=== PATIENT | male | born 1970 | race Two or more races ===

== ENCOUNTER → 2018-07-12 12:23 | Outpatient (CLI) | payer OTHER | END | disposition home or self-care (01) | LOC: RAD 12:23 | DX: J44.1 Chronic obstructive pulmonary disease with (acute) exacerbation (principal) ==

== ENCOUNTER 2018-12-11 13:28 | Outpatient (CLI) | payer OTHER | END 2018-12-11 13:37 | disposition home or self-care (01) | LOC: LAB 13:28 | DX: J11.1 Influenza due to unidentified influenza virus with other respiratory manifestations (principal); J06.9 Acute upper respiratory infection, unspecified ==

== ENCOUNTER 2018-12-16 16:16 | Outpatient (CLI) | payer OTHER | END 2018-12-16 16:36 | disposition home or self-care (01) | LOC: LAB 16:16 | DX: J11.1 Influenza due to unidentified influenza virus with other respiratory manifestations (principal); J02.8 Acute pharyngitis due to other specified organisms ==

== ENCOUNTER 2018-12-18 13:03 | Outpatient (CLI) | payer OTHER | END 2018-12-18 13:12 | disposition home or self-care (01) | LOC: RAD 13:03 | DX: R59.0 Localized enlarged lymph nodes (principal); M54.2 Cervicalgia ==

== ENCOUNTER 2019-02-05 08:23 | Outpatient (CLI) | payer OTHER | END 2019-02-05 12:09 | disposition home or self-care (01) | LOC: LAB 08:23 | DX: I10 Essential (primary) hypertension (principal); M54.5 Low back pain; E03.8 Other specified hypothyroidism; I11.9 Hypertensive heart disease without heart failure ==

== ENCOUNTER 2019-02-07 11:42 | Outpatient (CLI) | payer OTHER | END 2019-02-07 11:44 | disposition home or self-care (01) | LOC: LAB 11:42 | DX: M54.5 Low back pain (principal); E03.8 Other specified hypothyroidism; I11.9 Hypertensive heart disease without heart failure; I10 Essential (primary) hypertension ==

== ENCOUNTER 2019-02-09 13:13 | Outpatient (CLI) | payer OTHER | END 2019-02-09 13:40 | disposition home or self-care (01) | LOC: SONOGRAMA 13:13 | DX: M54.5 Low back pain (principal); I10 Essential (primary) hypertension; E03.8 Other specified hypothyroidism; I11.9 Hypertensive heart disease without heart failure ==

== ENCOUNTER 2019-08-26 06:38 | Outpatient (CLI) | payer OTHER | END 2019-08-26 06:50 | disposition home or self-care (01) | LOC: LAB 06:38 | DX: M54.5 Low back pain (principal); E03.8 Other specified hypothyroidism; I11.9 Hypertensive heart disease without heart failure; M77.30 Calcaneal spur, unspecified foot; D21.22 Benign neoplasm of connective and other soft tissue of left lower limb, including hip; I10 Essential (primary) hypertension ==

== ENCOUNTER 2019-08-26 17:19 | Outpatient (CLI) | payer OTHER | END 2019-08-26 18:00 | disposition home or self-care (01) | LOC: RAD 17:19 | DX: M54.5 Low back pain (principal); I10 Essential (primary) hypertension; D21.22 Benign neoplasm of connective and other soft tissue of left lower limb, including hip; M77.31 Calcaneal spur, right foot ==

== ENCOUNTER 2021-08-04 10:30 | Outpatient (CLI) | payer OTHER | END 2021-08-04 11:00 | disposition home or self-care (01) | LOC: PPH VACUNA 10:30 | PROVIDERS: ATTEND Emergency Medicine Pediatric Emergency Medicine | DX: Z23 Encounter for immunization (principal) ==

== ENCOUNTER 2021-12-25 19:01 | Emergency (ER) | payer OTHER ==
[~2021-12-25] VITALS: Ht 180.3 cm; Wt 136.1 kg
[2021-12-25] MEDS ORDERED: ENALAPRIL MALEA10 MG (19:48)
[2021-12-25] MEDS ORDERED: PROBIOTIC1 EAC4 PO (23:24)
[2021-12-25] MEDS ORDERED: PEPCID AC20 MG PO (23:24)
[2021-12-25] MEDS ORDERED: CIPRO500 MG PO (23:24)
== END 2021-12-26 02:06 | disposition home or self-care (01) ==
LOC: ER 19:01
DX: R10.13 Epigastric pain (principal); R19.7 Diarrhea, unspecified; R11.0 Nausea; Z88.6 Allergy status to analgesic agent; I10 Essential (primary) hypertension

== ENCOUNTER 2022-01-09 18:31 | Emergency (ER) | payer OTHER ==
[~2022-01-09] VITALS: Ht 180.3 cm; Wt 132.9 kg
[~2022-01-09 18:31] MED LIST: CIPRO500 MG PO; ENALAPRIL MALEA10 MG; PEPCID AC20 MG PO; PROBIOTIC1 EAC4 PO
== END 2022-01-10 00:57 | disposition home or self-care (01) ==
LOC: ER 18:31
DX: K52.9 Noninfective gastroenteritis and colitis, unspecified (principal); Z88.6 Allergy status to analgesic agent

== ENCOUNTER 2022-01-12 17:55 | Outpatient (CLI) | payer OTHER | END 2022-01-12 18:09 | disposition home or self-care (01) | LOC: LAB 17:55 | PROVIDERS: ATTEND Internal Medicine | DX: A09 Infectious gastroenteritis and colitis, unspecified (principal) ==

== ENCOUNTER 2022-01-31 08:00 | Outpatient (CLI) | payer OTHER | END 2022-01-31 08:30 | disposition home or self-care (01) | LOC: PPH VACUNA 08:00 | PROVIDERS: ATTEND Emergency Medicine Pediatric Emergency Medicine | DX: Z23 Encounter for immunization (principal) ==

== ENCOUNTER → 2022-03-06 | Outpatient (CLI) | payer OTHER | END | disposition home or self-care (01) | LOC: LAB 10:52 | PROVIDERS: ATTEND Physical Medicine & Rehabilitation | DX: U07.1 COVID-19 (principal) ==

== ENCOUNTER 2022-04-23 15:58 | Outpatient (CLI) | payer OTHER | END 2022-04-23 16:06 | disposition home or self-care (01) | LOC: RAD 15:58 | PROVIDERS: ATTEND Physical Medicine & Rehabilitation | DX: I10 Essential (primary) hypertension (principal); M54.50 Low back pain, unspecified; E03.9 Hypothyroidism, unspecified; D21.22 Benign neoplasm of connective and other soft tissue of left lower limb, including hip; M23.92 Unspecified internal derangement of left knee; M77.30 Calcaneal spur, unspecified foot; M23.261 Derangement of other lateral meniscus due to old tear or injury, right knee; M77.32 Calcaneal spur, left foot ==

== ENCOUNTER 2022-06-26 09:50 | Outpatient (CLI) | payer OTHER | END 2022-06-26 10:09 | disposition home or self-care (01) | LOC: SONOGRAMA 09:50 | DX: M76.62 Achilles tendinitis, left leg (principal) ==

== ENCOUNTER 2024-12-16 08:50 | Outpatient (CLI) | payer OTHER ==
[~2024-12-16 08:50] MED LIST changes: +CHLORZOXAZONE750 MG PO; +CYCLOBENZAPRINE10 MG PO; +ENALAPRIL MALEA10 MG PO; +TRAMADOL HCL50 MG PO
== END 2024-12-16 09:02 | disposition home or self-care (01) ==
LOC: RAD 08:50
PROVIDERS: ATTEND Internal Medicine Cardiovascular Disease
DX: I10 Essential (primary) hypertension (principal)

== ENCOUNTER 2024-12-23 14:51 | Outpatient (CLI) | payer OTHER | END 2024-12-23 15:00 | disposition home or self-care (01) | LOC: RAD 14:51 | PROVIDERS: ATTEND Physical Medicine & Rehabilitation | DX: M77.31 Calcaneal spur, right foot (principal); M77.32 Calcaneal spur, left foot ==

== ENCOUNTER 2025-02-11 16:36 | Emergency (ER) | payer OTHER ==
[~2025-02-11] VITALS: Ht 180.3 cm; Wt 141.5 kg
[2025-02-11] MEDS ORDERED: LOSARTAN POTASS50 MG PO (16:41)
[2025-02-11] MEDS ORDERED: METHYLPREDNISOLONE SOD SUCC 125 MG VIAL ONE (17:13)
[2025-02-11] MEDS ORDERED: CEFTRIAXONE SODIUM 1,000 MG VIAL ONE (17:14)
[2025-02-11] MEDS ORDERED: FAMOTIDINE/PF 20 MG/2 ML VIAL ONE (17:14)
[2025-02-11] MEDS ORDERED: CEFTRIAXONE SODIUM 1,000 MG VIAL IM ONE (17:15)
[2025-02-11] MEDS ORDERED: FAMOtidine 10 MG/ML (4ML VIAL) IV ONE (17:15)
[2025-02-11] MEDS ORDERED: METHYLPREDNISOLONE SOD SUCC 125 MG VIAL IV ONE (17:15)
[2025-02-11 17:40] LABS: HEMATOCRIT 41.1 % (39.0-48.0); HEMOGLOBIN 13.8 g/dL (13-16.00); MEAN CELL VOLUME 80.4 fL (80.0-100.00); MEAN CORPUSCULAR HGB CONC 33.5 g/dl (32.0-36.0); PLATELET COUNT 286 K/uL (150-450); RED BLOOD COUNT 5.11 M/uL (4.00-6.00); RED CELL DISTRIBUTION WIDTH 13.3 % (11.5-14.5)
[2025-02-11 18:10] LABS: INFLUENZA A AG NEGATIVE (NEGATIVE)
[2025-02-11 18:15] LABS: COVID-19 AG NEGATIVE (NEGATIVE)
[2025-02-11] MEDS ORDERED: PEPCID AC20 MG PO (19:47)
[2025-02-11] MEDS ORDERED: MEDROLPACK PO (19:47)
[2025-02-11] MEDS ORDERED: AZITHROMYCIN500 MG PO (19:47)
== END 2025-02-11 20:02 | disposition home or self-care (01) ==
LOC: ER 16:38
PROVIDERS: General Practice
DX: M94.0 Chondrocostal junction syndrome [Tietze] (principal); I10 Essential (primary) hypertension; Z20.822 Contact with and (suspected) exposure to COVID-19; E11.9 Type 2 diabetes mellitus without complications; Z79.84 Long term (current) use of oral hypoglycemic drugs; Z88.6 Allergy status to analgesic agent; Z91.013 Allergy to seafood

== ENCOUNTER 2025-06-05 06:44 | Emergency (ER) | payer OTHER ==
[~2025-06-05] VITALS: Ht 180.3 cm; Wt 126.6 kg
[~2025-06-05 06:44] MED LIST changes: +AZITHROMYCIN500 MG PO; +GABAPENTIN100 M2 PO; +LOSARTAN POTASS50 MG PO; +MEDROLPACK PO
[2025-06-05] MEDS ORDERED: OMEPRAZOLE20 M1 (06:51)
[2025-06-05] MEDS ORDERED: METOCLOPRAMIDE HCL 5 MG/ML VIAL IM STA (07:15)
[2025-06-05] MEDS ORDERED: 0.9 % SODIUM CHLORIDE 500 ML IV STA (07:17)
[2025-06-05] MEDS ORDERED: HYOSCYAMINE SULFATE 0.125 MG TAB.SUBL SL STA (07:18)
[2025-06-05] MEDS ORDERED: FAMOtidine 10 MG/ML (4ML VIAL) IV PUSH STA (07:18)
[2025-06-05] MEDS ORDERED: HYOSCYAMINE SULFATE 0.125 MG TAB.SUBL ONE (07:20)
[2025-06-05] MEDS ORDERED: METOCLOPRAMIDE HCL 5 MG/ML VIAL ONE (07:20)
[2025-06-05] MEDS ORDERED: MAG HYDROX/ALUMINUM HYD/SIMETH 30 ML BLIST.PACK PO STA (07:21)
[2025-06-05] MEDS ORDERED: FAMOTIDINE/PF 20 MG/2 ML VIAL ONE (07:21)
[2025-06-05] MEDS ORDERED: LIDOCAINE HCL VISCOUS 20MG/ML BLIST 15ML MM ONE (07:21)
[2025-06-05] MEDS ORDERED: MAG HYDROX/ALUMINUM HYD/SIMETH 30 ML BLIST.PACK PO ONE (07:21)
[2025-06-05] MEDS ORDERED: LIDOCAINE HCL VISCOUS 20MG/ML BLIST 15ML MM STA (07:21)
== END 2025-06-05 10:02 | disposition home or self-care (01) ==
LOC: ER 06:44
DX: K21.9 Gastro-esophageal reflux disease without esophagitis (principal); R12 Heartburn; I10 Essential (primary) hypertension; Z88.6 Allergy status to analgesic agent; Z91.013 Allergy to seafood